=== PATIENT | female | born 1955 | race Caucasian/White ===

== ENCOUNTER → 2018-04-04 | Outpatient (CLI) | payer OTHER | LOC: M.RAD 15:02 | DX: Z12.31 Encounter for screening mammogram for malignant neoplasm of breast (principal) ==

== ENCOUNTER → 2018-10-25 | Outpatient (CLI) | payer OTHER | LOC: M.RAD 11:56 | DX: Z01.818 Encounter for other preprocedural examination (principal); R06.02 Shortness of breath ==

== ENCOUNTER → 2019-09-11 | Outpatient (CLI) | payer MEDICARE | LOC: M.RAD 15:46 | DX: Z12.31 Encounter for screening mammogram for malignant neoplasm of breast (principal) ==

== ENCOUNTER → 2020-12-09 | Outpatient (CLI) | payer MEDICARE | LOC: M.RAD 13:25 | PROVIDERS: ATTEND Family Medicine | DX: Z12.31 Encounter for screening mammogram for malignant neoplasm of breast (principal) ==